=== PATIENT | male | born 1970 | race Caucasian/White ===

== ENCOUNTER 2021-09-14 16:19 | Emergency (ER) | payer SELFPAY ==
[2021-09-14 16:22] VITALS: BP 125/71; PULSE 66; RESP 14; TEMP 36.6; O2SAT 98
--- NOTE | 2021-09-14 18:31 | ED.DENTAL ---
HPI - Dental/Oral General Chief complaint: Dental/Oral Stated complaint: Dental pain Time Seen by Provider: 09/14/21 18:11 Source: patient Mode of arrival: ambulatory Limitations: no limitations History of Present Illness HPI Narrative: This is a 51-year-old male that presents to the emergency department for dentalgia present over the last couple of days. Reports he has an appointment see his dentist but it is not until next week. He has been taking Tylenol with little relief. Denies fever or edema. MD Complaint: tooth pain Location: Tooth # (6) Related Data Allergies Allergy/AdvReac Type Severity Reaction Status Date / Time codeine Allergy Itching Verified 09/14/21 16:27 tramadol [From Ultram] Allergy Hives Verified 09/14/21 16:27 Review of Systems Review of Systems: CONSTITUTIONAL: Denies fever ENT: Reports dentalgia All systems reviewed & are unremarkable except as noted in HPI and below PMFSH Past Medical History Medical History (Updated 09/14/21 @ 18:35 by Adriane Handley PA-C) History of chronic kidney disease Social History Social History (Updated 09/14/21 @ 18:34 by Adriane Handley PA-C) Substance use: never Exam Narrative: GENERAL: Well-appearing, well-nourished, and in no acute distress. HEAD: Normocephalic, atraumatic. EYES: EOMI. ENT: Mucous membranes moist. Oropharynx without tonsillar hypertrophy exudate or other lesions. Poor dentition. Tooth #6 is rotten without surrounding erythema or edema NECK: Supple. No adenopathy or masses. CHEST: Clear to auscultation. No respiratory distress. No wheezes rales or rhonchi HEART: Regular rate and rhythm. No murmur heard. Normal peripheral pulses. EXTREMITIES: Normal range of motion. No edema. SKIN: Warm, dry, no rash. NEURO: No focal deficits. Alert and oriented x3. PSYCH: Normal mood and affect Course Vital Signs Vital signs: Vital Signs Temperature 97.8 F 09/14/21 16:22 Pulse Rate 66 09/14/21 16:22 Respiratory Rate 14 09/14/21 16:22 Blood Pressure 125/71 09/14/21 16:22 Pulse Oximetry 98 09/14/21 16:22 Oxygen Delivery Room Air 07/18/22 16:22 Temperature 97.8 F 09/14/21 16:22 Pulse Rate 66 09/14/21 16:22 Respiratory Rate 14 09/14/21 16:22 Blood Pressure 125/71 09/14/21 16:22 Pulse Oximetry 98 09/14/21 16:22 Oxygen Delivery Room Air 09/14/21 16:22 MDM - Dental/Oral MDM Narrative Medical decision making narrative: Patient presents to the emergency department for dentalgia. No evidence for abscess on exam. Patient will be started on oral antibiotics. He is instructed to follow-up with his dentist. He was given warnings to return to the ER Critical Care Time Critical Care Time Critical Care Time: No Discharge Plan Discharge Clinical Impression: Toothache Patient Disposition: Home, Self-Care Condition: Stable Instructions: Antibiotic Form, Toothache (ED) Additional Instructions: Return to the Emergency Department if you experience fever >101, increasing swelling and redness of your tooth, or any other symptoms that are concerning to you Take antibiotic as prescribed. [id number] pain medication as needed. You can apply a dab of clove oil to a Qtip and apply to the tooth to help numb the area Follow up with your dentist Prescriptions: New amoxicillin-pot clavulanate 500-125 mg tablet 1 tablet PO Q12H 10 Days Qty: 20 0RF hydrocodone-acetaminophen 5-325 mg tablet 1 tablet PO Q8H PRN (Reason: pain) Qty: 7 0RF Follow-up/Referrals: PHYSICIAN NOT ON STAFF,NONSTAFF [Primary Care Provider] -
== END 2021-09-14 18:46 | disposition home or self-care (01) ==
PROVIDERS: Emergency Provider Emergency Medicine
DX: K08.89 Other specified disorders of teeth and supporting structures (principal); N18.9 Chronic kidney disease, unspecified
CPT/HCPCS: 99283